=== PATIENT | male | born 1950 ===

== ENCOUNTER 2020-12-28 15:34 | Outpatient (REF) | payer MEDICARE, MEDICAID, SELFPAY ==
[2020-12-28 19:46] LABS: HCT 39.8 % (40.0-50.0); HGB 13.7 g/dL (13.5-17.5); MCH 34.8 pg (27.0-33.0); MCHC 34.4 % (32.0-36.0); MPV 9.4 fL (8.0-11.0); Platelet Count 272 10^3/uL (130-400); RBC 3.94 10^6/uL (4.36-5.78); RDW 11.8 % (11.8-14.1); RDW-SD 43.8 fL; WBC 6.88 10^3/uL (4.4-10.8)
[2020-12-28 20:09] LABS: Anion Gap 6.6 mmol/L (3-11); BUN 17 mg/dL (7-18); CO2 28.4 mmol/L (21.0-32.0); Calcium 9.2 mg/dL (8.5-10.1); Calculated LDL 129 mg/dL (<100); Chloride 99 mmol/L (98-107); Cholesterol 229 mg/dL (<200); Glucose 153 mg/dL (74-106); HDL Cholesterol 84 mg/dL (40-60); Potassium 4.9 mmol/L (3.5-5.1); Sodium 134 mmol/L (136-145); TSH 0.88 uIU/mL (0.36-3.74); Triglyceride 82 mg/dL (<150)
== END 2020-12-28 15:35 | disposition home or self-care (01) ==
LOC: NCHCN 15:34
PROVIDERS: Visit Provider Internal Medicine
DX: I10 Essential (primary) hypertension (principal); I69.952 Hemiplegia and hemiparesis following unspecified cerebrovascular disease affecting left dominant side; R47.01 Aphasia; F31.9 Bipolar disorder, unspecified
CPT/HCPCS: 80048; 80061; 85027; 84443

== ENCOUNTER 2022-01-07 17:50 | Outpatient (REF) | payer MEDICARE, SELFPAY ==
[2022-01-07 19:11] LABS: Hemoglobin A1C 5.5 % (<5.7)
[2022-01-07 19:28] LABS: Anion Gap 8.3 mmol/L (3-11); BUN 14 mg/dL (7-18); CO2 27.7 mmol/L (21.0-32.0); CREATININE 0.9 mg/dL (0.70-1.30); Calcium 9.3 mg/dL (8.5-10.1); Chloride 99 mmol/L (98-107); Glucose 92 mg/dL (74-106); Potassium 4.5 mmol/L (3.5-5.1); Sodium 135 mmol/L (136-145); TSH 0.46 uIU/mL (0.36-3.74)
== END 2022-01-07 17:51 | disposition home or self-care (01) ==
LOC: NCHCN 17:50
PROVIDERS: Visit Provider Internal Medicine
DX: I10 Essential (primary) hypertension (principal); I69.952 Hemiplegia and hemiparesis following unspecified cerebrovascular disease affecting left dominant side
CPT/HCPCS: 80048; 83036; 84443

== ENCOUNTER 2023-05-17 16:38 | Outpatient (REF) | payer MEDICARE, MEDICAID, SELFPAY ==
[2023-05-17 22:28] LABS: Anion Gap 5.5 mmol/L (3-11); BUN 27 mg/dL (7-18); CO2 28.5 mmol/L (21.0-32.0); CREATININE 1.3 mg/dL (0.70-1.30); Calcium 9.3 mg/dL (8.5-10.1); Calculated LDL 177 mg/dL (<100); Chloride 102 mmol/L (98-107); Cholesterol 271 mg/dL (<200); Estimated GFR 58.01 (mL/min/1.73m2); Glucose 86 mg/dL (74-106); HDL Cholesterol 84 mg/dL (40-60); Potassium 4.9 mmol/L (3.5-5.1); Sodium 136 mmol/L (136-145); Triglyceride 51 mg/dL (<150)
== END 2023-05-17 16:39 | disposition home or self-care (01) ==
LOC: NCHCN 16:38
PROVIDERS: Visit Provider Internal Medicine
DX: E78.5 Hyperlipidemia, unspecified (principal); Z86.79 Personal history of other diseases of the circulatory system
CPT/HCPCS: 80048; 80061